=== PATIENT | male | born 1975 | race Caucasian/White ===

== ENCOUNTER 2020-01-24 08:30 | Emergency (ER) | payer SELFPAY ==
[~2020-01-24] VITALS: Ht 190.5 cm; Wt 86.2 kg
[~2020-01-24 08:30] MED LIST: 'PARAFON FORTE500 M1 PO; ADDERALL 20 MG20 MG PO; ALLEGRA ALLERGY60 M2 PO; AUGMENTIN XR 101 TER PO; MOTRIN800 MG PO; NORCO 7.5-3251 EACH PO; VIBRAMYCIN100 MG PO; VICODIN ES 7501 TAB PO; ZITHROMAX Z PA250 MG PO; ZITHROMAX250 MG PO
[2020-01-24] MEDS ORDERED: TYLENOL325 M1 PO (12:37)
[2020-01-24] MEDS ORDERED: NAPROSYN500 MG PO (12:37)
== END 2020-01-24 13:30 | disposition home or self-care (01) ==
LOC: ED 08:30
DX: M25.561 Pain in right knee (principal); Z88.8 Allergy status to other drugs, medicaments and biological substances; Z79.899 Other long term (current) drug therapy

== ENCOUNTER 2020-02-25 19:10 | Emergency (ER) | payer SELFPAY ==
[~2020-02-25] VITALS: Ht 190.5 cm; Wt 88.5 kg
[~2020-02-25 19:10] MED LIST changes: +NAPROSYN500 MG PO; +TYLENOL325 M1 PO
[2020-02-25] MEDS ORDERED: IBUPROFEN600 MG PO (19:51)
[2020-02-25] MEDS ORDERED: AMOXICILLIN500 M2 PO (19:51)
== END 2020-02-25 20:08 | disposition home or self-care (01) ==
LOC: ED 19:10
DX: K08.89 Other specified disorders of teeth and supporting structures (principal); F17.200 Nicotine dependence, unspecified, uncomplicated; Z88.2 Allergy status to sulfonamides

== ENCOUNTER 2020-07-26 18:14 | Emergency (ER) | payer OTHER ==
[~2020-07-26] VITALS: Ht 190.5 cm; Wt 83.9 kg
[~2020-07-26 18:14] MED LIST changes: +AMOXICILLIN500 M2 PO; +IBUPROFEN600 MG PO
[2020-07-26 20:11] LABS: BASO % 0.4 % (0.0-1.0); EOS # 0.3 10*3/uL (0.0-0.4); EOS % 3.4 % (1.0-4.0); HEMATOCRIT 41.1 % (42.0-52.0); LYMPH # 1.9 10*3/uL (1.3-4.4); LYMPH % 24.1 % (27.0-41.0); MEAN CELL VOLUME 90.9 fl (80.0-94.0); MEAN CORPUSCULAR HGB 29.9 pg (27.0-31.0); MEAN CORPUSCULAR HGB CONC 32.8 g/dl (33.0-37.0); MEAN PLATELET VOLUME 8.3 fl (9.6-12.3); MONO # 0.7 10*3/uL (0.1-1.0); MONO % 9.1 % (3.0-9.0); NEUT % 62.9 % (47.0-73.0); PLATELET COUNT AUTOMATED 267 10*3/uL (130-400); RED BLOOD COUNT 4.52 10*6/uL (4.50-5.90); RED CELL DISTRI WIDTH 12.6 % (0-14.5)
[2020-07-26 20:22] LABS: BUN 16 mg/dl (7-24); CHLORIDE 105 mmol/L (98-107); CREATININE 1.19 mg/dL (0.70-1.30); POTASSIUM 3.3 mmol/L (3.5-5.1); SODIUM 138 mmol/L (136-145)
[2020-07-26 20:26] LABS: INTERNATIONAL NORM RATIO 0.9 (2.0-3.5)
== END 2020-07-26 21:28 | disposition home or self-care (01) ==
LOC: ED 18:14
PROVIDERS: Internal Medicine
DX: S01.01XA Laceration without foreign body of scalp, initial encounter (principal); T25.221A Burn of second degree of right foot, initial encounter; T25.222A Burn of second degree of left foot, initial encounter; T31.0 Burns involving less than 10% of body surface; M25.521 Pain in right elbow; J45.909 Unspecified asthma, uncomplicated; F17.200 Nicotine dependence, unspecified, uncomplicated; Z88.2 Allergy status to sulfonamides; Z88.8 Allergy status to other drugs, medicaments and biological substances; Z79.899 Other long term (current) drug therapy; V89.2XXA Person injured in unspecified motor-vehicle accident, traffic, initial encounter; Y93.89 Activity, other specified; Y92.89 Other specified places as the place of occurrence of the external cause; Y99.8 Other external cause status

== ENCOUNTER 2020-08-17 01:53 | Emergency (ER) | payer OTHER ==
[~2020-08-17] VITALS: Wt 83.9 kg
== END 2020-08-17 02:34 | disposition home or self-care (01) ==
LOC: ED 01:53
DX: S01.01XD Laceration without foreign body of scalp, subsequent encounter (principal); Z88.8 Allergy status to other drugs, medicaments and biological substances; Z79.899 Other long term (current) drug therapy; Z98.890 Other specified postprocedural states; V89.2XXD Person injured in unspecified motor-vehicle accident, traffic, subsequent encounter

== ENCOUNTER 2022-03-10 04:15 | Emergency (ER) | payer MEDICAID ==
[~2022-03-10] VITALS: Ht 190.5 cm; Wt 86.2 kg
[2022-03-10] MEDS ORDERED: AMOX-CLAV 875-1 EACH PO (04:41)
[2022-03-10] MEDS ORDERED: PREDNISONE20 M1 PO (04:41)
== END 2022-03-10 04:46 | disposition home or self-care (01) ==
LOC: ED 04:15
DX: J32.8 Other chronic sinusitis (principal); K08.89 Other specified disorders of teeth and supporting structures; B34.9 Viral infection, unspecified; Z88.1 Allergy status to other antibiotic agents

== ENCOUNTER 2022-07-28 23:05 | Emergency (ER) | payer MEDICAID ==
[~2022-07-28] VITALS: Ht 190.5 cm; Wt 86.2 kg
[~2022-07-28 23:05] MED LIST changes: +AMOX-CLAV 875-1 EACH PO; +PREDNISONE20 M1 PO
[2022-07-28 23:44] LABS: BASO # 0.1 10*3/uL (0.0-0.1); BASO % 0.7 % (0.0-1.0); EOS # 0.2 10*3/uL (0.0-0.4); EOS % 2.4 % (1.0-4.0); HEMATOCRIT 42.7 % (42.0-52.0); LYMPH # 1.5 10*3/uL (1.3-4.4); LYMPH % 16.7 % (27.0-41.0); MEAN CELL VOLUME 89.7 fl (80.0-94.0); MEAN CORPUSCULAR HGB 31.1 pg (27.0-31.0); MEAN CORPUSCULAR HGB CONC 34.7 g/dl (33.0-37.0); MEAN PLATELET VOLUME 8.5 fl (9.6-12.3); MONO # 0.6 10*3/uL (0.1-1.0); MONO % 7.1 % (3.0-9.0); NEUT # 6.4 10*3/uL (2.3-7.9); NEUT % 72.8 % (47.0-73.0); PLATELET COUNT AUTOMATED 267 10*3/uL (130-400); RED BLOOD COUNT 4.76 10*6/uL (4.50-5.90); RED CELL DISTRI WIDTH 12.3 % (0-14.5); WHITE BLOOD COUNT 8.8 10*3/uL (4.8-10.8)
[2022-07-28 23:59] LABS: ALKALINE PHOSPHATASE 76 U/L (46-116); BUN 10 mg/dl (9-23); CHLORIDE 107 mmol/L (98-107); CPK 346 U/L (34-171); POTASSIUM 3.6 mmol/L (3.4-5.1); SGPT/ALT 26 U/L (10-49); TOTAL PROTEIN 6.3 gm/dL (6.0-8.0)
== END 2022-07-29 02:26 ==
LOC: ED 23:05
PROVIDERS: Internal Medicine
DX: M25.511 Pain in right shoulder (principal); M25.512 Pain in left shoulder; M54.2 Cervicalgia; M54.50 Low back pain, unspecified; R74.8 Abnormal levels of other serum enzymes; Z88.1 Allergy status to other antibiotic agents

== ENCOUNTER 2023-12-09 22:14 | Observation (INO) | payer MEDICAID ==
[~2023-12-09] VITALS: Ht 190.5 cm; Wt 90.7 kg
[2023-12-09 22:19] VITALS: BP 99/40
[2023-12-09 22:47] LABS: BASO # 0.1 10*3/uL (0.0-0.1); BASO % 0.9 % (0.0-1.0); EOS # 0.2 10*3/uL (0.0-0.4); HEMATOCRIT 51.4 % (42.0-52.0); LYMPH # 2.2 10*3/uL (1.3-4.4); LYMPH % 33.8 % (27.0-41.0); MEAN CELL VOLUME 91.3 fl (80.0-94.0); MEAN CORPUSCULAR HGB 30.6 pg (27.0-31.0); MEAN CORPUSCULAR HGB CONC 33.5 g/dl (33.0-37.0); MEAN PLATELET VOLUME 8.5 fl (9.6-12.3); MONO # 0.6 10*3/uL (0.1-1.0); MONO % 9.2 % (3.0-9.0); NEUT # 3.5 10*3/uL (2.3-7.9); NEUT % 52.5 % (47.0-73.0); PLATELET COUNT AUTOMATED 346 10*3/uL (130-400); RED BLOOD COUNT 5.63 10*6/uL (4.50-5.90); RED CELL DISTRI WIDTH 12.6 % (0-14.5); WHITE BLOOD COUNT 6.6 10*3/uL (4.8-10.8)
[2023-12-09 23:13] LABS: POTASSIUM 3.7 mmol/L (3.4-5.1); TOTAL PROTEIN 7.6 gm/dL (6.0-8.0)
[2023-12-09] MEDS ORDERED: SODIUM CHLORIDE 0.9% 1,000 ML IV ONE (23:20)
[2023-12-09 23:36] LABS: CPK 182 U/L (34-171)
[2023-12-09 23:39] LABS: ETHYL ALCOHOL < 3.0 mg/dl (<3)
[2023-12-10] MEDS ORDERED: BISACODYL 5 MG TAB PO PRN (02:05)
[2023-12-10] MEDS ORDERED: ACETAMINOPHEN 650 MG SUPP R PRN (02:05)
[2023-12-10] MEDS ORDERED: TEMAZEPAM 15 MG CAP PO PRN (02:05)
[2023-12-10] MEDS ORDERED: Magnesium Hydroxide 30 ML UDC PO PRN (02:05)
[2023-12-10] MEDS ORDERED: ACETAMINOPHEN 325 MG TAB PO PRN (02:05)
[2023-12-10] MEDS ORDERED: BISACODYL 10 MG SUPP R PRN (02:05)
[2023-12-10] MEDS ORDERED: SODIUM CHLORIDE 0.9% 1,000 ML IV ONE ×2 (02:10→03:15)
[2023-12-10 03:10] LABS: BASO % 0.2 % (0.0-1.0); EOS # 0.1 10*3/uL (0.0-0.4); EOS % 0.5 % (1.0-4.0); HEMATOCRIT 46.4 % (42.0-52.0); LYMPH # 1.6 10*3/uL (1.3-4.4); LYMPH % 13.3 % (27.0-41.0); MEAN CELL VOLUME 91.9 fl (80.0-94.0); MEAN CORPUSCULAR HGB 30.5 pg (27.0-31.0); MEAN CORPUSCULAR HGB CONC 33.2 g/dl (33.0-37.0); MEAN PLATELET VOLUME 8.7 fl (9.6-12.3); MONO # 1.1 10*3/uL (0.1-1.0); MONO % 9.4 % (3.0-9.0); NEUT # 9.2 10*3/uL (2.3-7.9); NEUT % 76.4 % (47.0-73.0); PLATELET COUNT AUTOMATED 272 10*3/uL (130-400); RED BLOOD COUNT 5.05 10*6/uL (4.50-5.90); RED CELL DISTRI WIDTH 12.8 % (0-14.5); WHITE BLOOD COUNT 12.1 10*3/uL (4.8-10.8)
[2023-12-10 03:11] LABS: BILIRUBIN Negative (Negative); BLOOD Negative (Negative); CLARITY Cloudy (Clear); COLOR Yellow (Yellow); GLUCOSE Negative (Negative); KETONE Trace (Negative); LEUKO ESTERASE Trace (Negative); NITRITE Negative (Negative); PH 5.5 (4.5-8.0); SPECIFIC GRAVITY 1.025 (1.001-1.030)
[2023-12-10 03:14] VITALS: BP 114/72
[2023-12-10 03:18] LABS: URINE AMPHETAMINES Positive (1000ng/ml); URINE BARBITURATES Negative (200ng/ml); URINE BENZODIAZEPINES Negative (200ng/ml); URINE CANNABINOIDS (THC) Negative (50ng/ml); URINE COCAINE Negative (300ng/ml); URINE METHADONE Negative (300ng/ml); URINE OPIATES Negative (300ng/ml); URINE PHENCYCLIDINE Negative (25ng/ml)
[2023-12-10 03:30] LABS: MUCOUS 1+; RBC 0-2 rbc/hpf (0-2)
[2023-12-10 03:36] LABS: ALKALINE PHOSPHATASE 78 U/L (46-116); BUN 12 mg/dl (9-23); CHLORIDE 107 mmol/L (98-107); CHOLESTEROL 151 mg/dL (<200); LDL CHOLESTEROL 93 mg/dL (9-159); POTASSIUM 3.6 mmol/L (3.4-5.1); SGPT/ALT 13 U/L (5-49); TOTAL PROTEIN 6.3 gm/dL (6.0-8.0); TRIGLYCERIDES 69 mg/dl (<150)
[2023-12-10 09:35] VITALS: BP 92/59
[2023-12-10] MEDS ORDERED: Enoxaparin Sodium 40 MG/0.4 ML SYR SC SCH (10:00)
== END 2023-12-10 11:42 | disposition home or self-care (01) ==
LOC: ED 22:14 → EDHOLD 12-10 00:10
PROVIDERS: Internal Medicine; Student in an Organized Health Care Education/Training Program; ADMIT Internal Medicine; ATTEND Internal Medicine
DX: M62.82 Rhabdomyolysis (principal); E87.20 Acidosis, unspecified; N17.0 Acute kidney failure with tubular necrosis; E83.52 Hypercalcemia; E83.41 Hypermagnesemia; R65.10 Systemic inflammatory response syndrome (SIRS) of non-infectious origin without acute organ dysfunction; E86.0 Dehydration; D72.829 Elevated white blood cell count, unspecified; F19.10 Other psychoactive substance abuse, uncomplicated; F17.210 Nicotine dependence, cigarettes, uncomplicated; Z79.899 Other long term (current) drug therapy

== ENCOUNTER 2024-08-22 14:57 | Emergency (ER) | payer MEDICAID ==
[~2024-08-22] VITALS: Ht 190.5 cm; Wt 95.3 kg
[2024-08-22 15:20] LABS: BASO # 0.1 10*3/uL (0.0-0.1); BASO % 0.9 % (0.0-1.0); EOS # 0.3 10*3/uL (0.0-0.4); EOS % 4.7 % (1.0-4.0); HEMATOCRIT 49.1 % (42.0-52.0); MEAN CELL VOLUME 91.9 fl (80.0-94.0); MEAN CORPUSCULAR HGB 30.1 pg (27.0-31.0); MEAN CORPUSCULAR HGB CONC 32.8 g/dl (33.0-37.0); MEAN PLATELET VOLUME 8.4 fl (9.6-12.3); MONO # 0.6 10*3/uL (0.1-1.0); MONO % 7.9 % (3.0-9.0); NEUT # 3.8 10*3/uL (2.3-7.9); NEUT % 54.7 % (47.0-73.0); PLATELET COUNT AUTOMATED 274 10*3/uL (130-400); RED BLOOD COUNT 5.34 10*6/uL (4.50-5.90); RED CELL DISTRI WIDTH 13.1 % (0-14.5)
[2024-08-22 15:52] LABS: BUN 12 mg/dl (9-23); CHLORIDE 105 mmol/L (98-107); POTASSIUM 3.8 mmol/L (3.4-5.1)
[2024-08-22] MEDS ORDERED: hydrOXYzine pamoate 25 MG CAP PO ONE (16:00)
[2024-08-22 16:02] LABS: ACT PARTIAL THROMBO TIME 25.7 SECONDS (20.0-32.1)
== END 2024-08-22 16:14 ==
LOC: ED 14:57
PROVIDERS: Internal Medicine
DX: R07.89 Other chest pain (principal); J45.909 Unspecified asthma, uncomplicated; F17.200 Nicotine dependence, unspecified, uncomplicated; Z88.1 Allergy status to other antibiotic agents; Z88.2 Allergy status to sulfonamides; Z98.890 Other specified postprocedural states